=== PATIENT | male | born 1995 | race Caucasian/White ===

== ENCOUNTER 2017-12-06 18:30 | Emergency (ER) | payer SELFPAY ==
[2017-12-06 19:00] VITALS: BP 126/66
[2017-12-06] MEDS ORDERED: traMADol 50 MG Tab PO ONE ×2 (19:16→19:29)
--- NOTE | 2017-12-06 19:32 | EDM.PDOC ---
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 Consequently he is working as hard as he can to maximize his financial arrival. Mariam's weather was unusually "soupy wet"with the brain. He slipped and strained his lower back. A year ago had been Dilaudid given he had too much of a ochoa. He does not want Dilaudid. He is not on any medicines. He's had an MRI of this lung in [facility] and the MRI documented granulomatous lung and mitral valve prolapse. He was thought to have had in mild TIA a year ago because had brief spell of weakness. But a TIA was ruled out . Treatments MANAGEMENT INFORMATION SYSTEMS DIRECTOR: Reports: Acetaminophen, Other (see below) Other Treatments MANAGEMENT INFORMATION SYSTEMS DIRECTOR: aleve Lower Back Pain Score (Numeric/FACES): 3 - Related Data Allergies Allergy/AdvReac Type Severity Reaction Status Date / Time hydromorphone [From Dilaudid] Allergy Anxiety Verified 12/06/17 18:40 Home Meds: Home Meds traMADol [Ultram] 50 mg PO Q4H PRN #30 tab 12/06/17 [Rx] Past Medical History Other HEENT History: wisdom teeth Cardiovascular History: Reports: Other (See Below) Other Cardiovascular History: hx of mitral valve regurgitation Other Respiratory History: hx of granuloma both lungs Social & Family History - Tobacco Use Smoking Status *Q: Current Every Day Smoker Years of Tobacco use: 11 Packs/Tins Daily: 0.5 Second Hand Smoke Exposure: Yes - Caffeine Use Caffeine Use: Reports: None - Recreational Drug Use Recreational Drug Use: No ED ROS GENERAL - Review of Systems Review Of Systems: See Below Constitutional: Reports: No Symptoms HEENT: Reports: No Symptoms Respiratory: Reports: No Symptoms Cardiovascular: Reports: No Symptoms Endocrine: Reports: No Symptoms GI/Abdominal: Reports: No Symptoms : Reports: No Symptoms Musculoskeletal: Reports: Back Pain Skin: Reports: No Symptoms Neurological: Reports: No Symptoms Psychiatric: Reports: No Symptoms Hematologic/Lymphatic: Reports: No Symptoms Immunologic: Reports: No Symptoms ED EXAM,LOWER BACK PAIN/INJURY - Physical Exam Exam: See Below Text/Narrative:: Zana is a pleasant 22-year-old asthenic muscular young man who has a smoking fetor tohis breath and was laying on the gurney and has a moderate low back discomfort.or General Appearance: Alert, WD/WN, Mild Distress Eye Exam: Bilateral Eye: Normal Inspection, PERRL Ears: Normal External Exam, Normal Canal, Hearing Grossly Normal, Normal TMs Nose: Normal Inspection Throat/Mouth: Normal Inspection, Normal Lips, Normal Teeth, Normal Gums, Normal Oropharynx, Normal Voice Head: Atraumatic, Normocephalic Respiratory/Chest: No Respiratory Distress, Lungs Clear, Normal Breath Sounds, No Accessory Muscle Use, Chest Non-Tender Cardiovascular: Normal Peripheral Pulses, Regular Rate, Rhythm, No Edema, No Gallop, No JVD, No Murmur, No Rub GI/Abdominal: Normal Bowel Sounds, Soft, Non-Tender, No Organomegaly, No Distention, No Abnormal Bruit, No Mass (Male) Exam: Deferred Rectal (Males) Exam: Deferred Back Exam: Normal Inspection, Decreased Range of Motion, Other (Has mild spinous process tenderness and interspinous process ligament tenderness L1-L5. No SI joint pain. Leg raise is positive at 60 bilaterally. Deep tendon reflexes are present upper and lower extremities are normal. No sensory changes. no cauda equina symptoms.) Extremities: Normal Inspection, Normal Range of Motion, Non-Tender, No Pedal Edema, Normal Capillary Refill Neurological: Alert, Normal Mood/Affect, Normal Dorsiflexion, CN II-XII Intact, Normal Plantar Flexion, Normal Gait, Normal Reflexes, No Motor/Sensory Deficits DTR - Lower Extremities: 1+: Knee (R), Knee (L), Ankle (R), Ankle (L) Psychiatric: Normal Affect, Normal Mood Skin Exam: Warm, Dry, Intact, Normal Color, No Rash Lymphatic: No Adenopathy Course - Vital Signs Last Recorded V/S: Last Vital Signs Temp 36.9 C 12/06/17 18:59 Pulse 94 12/06/17 18:59 Resp 20 12/06/17 18:59 BP 126/66 12/06/17 18:59 Pulse Ox 100 12/06/17 18:59 - Orders/Labs/Meds Meds: Medications Discontinued Medications Generic Name Dose Route Start Last Admin Trade Name Freq PRN Reason Stop Dose Admin Tramadol HCl 100 mg 12/06/17 19:16 Ultram PO 12/06/17 19:17 ONETIME ONE Departure - Departure Time of Disposition: 17:50 Disposition: Home, Self-Care 01 Clinical Impression: Low back strain Qualifiers: Encounter type: initial encounter Qualified Code(s): S39.012A - Strain of muscle, fascia and tendon of lower back, initial encounter - Discharge Information *PRESCRIPTION DRUG MONITORING PROGRAM REVIEWED*: Not Applicable *COPY OF PRESCRIPTION DRUG MONITORING REPORT IN PATIENT ROSSANA: Not Applicable Prescriptions: traMADol [Ultram] 50 mg PO Q4H PRN #30 tab PRN Reason: Pain Referrals: PCP,None [Primary Care Provider] -
== END 2017-12-06 19:47 | disposition home or self-care (01) ==
LOC: FB.ED 18:30
DX: S39.012A Strain of muscle, fascia and tendon of lower back, initial encounter (principal); F17.210 Nicotine dependence, cigarettes, uncomplicated; Z88.5 Allergy status to narcotic agent; W01.198A Fall on same level from slipping, tripping and stumbling with subsequent striking against other object, initial encounter
CPT/HCPCS: 99282; A9270-GY